=== PATIENT | female | born 1935 | race Hispanic/Latino ===

== ENCOUNTER 2017-07-21 18:50 | Inpatient (IN) | payer OTHER ==
[~2017-07-21] VITALS: Ht 144.8 cm; Wt 33.2 kg
[2017-07-21 19:46] LABS: INR 0.94 (0.85-1.15); PARTIAL THROMBOPLASTIN TIME 27.8 SEC (26.3-35.5); PROTHROMBIN TIME 9.9 SEC (9.6-11.6)
[2017-07-21 19:48] LABS: POTASSIUM 3.6 mmol/L (3.5-5.1)
[2017-07-21 19:52] LABS: ALBUMIN 3.2 g/dL (3.5-5.0); BILIRUBIN,TOTAL 0.3 mg/dL (0.2-1.0); TOTAL PROTEIN, SERUM 7.1 g/dL (6.0-8.3)
[2017-07-21] MEDS ORDERED: SODIUM CHLORIDE 0.9% 1000ML 1,000 ML IV ONE (20:32)
[2017-07-21 20:35] LABS: BASOPHILS % (AUTO) 0.4 % (0.0-5.0); EOSINOPHILS % (AUTO) 0.6 % (0.0-8.0); HEMATOCRIT 38.4 % (36-48); LYMPHOCYTES % (AUTO) 12.8 % (21.0-51.0); MEAN CORPUSCULAR HEMOGLOBIN 28.5 pg (27.0-33.0); MEAN CORPUSCULAR HGB CONC 33.3 g/dL (32.0-36.0); MEAN CORPUSCULAR VOLUME 85.7 fL (79-99); MONOCYTES % (AUTO) 5.9 % (3.0-13.0); NEUTROPHILS % (AUTO) 80.3 % (40.0-77.0); PLATELET COUNT (AUTO) 255 K/uL (130-400); RED BLOOD CELL COUNT(AUTO) 4.49 MIL/uL (4.00-5.50); RED CELL DISTRIBUTION WIDTH 15.6 % (11.0-15.5)
[2017-07-21 23:07] LABS: APPEARANCE,URINE Cloudy (CLEAR); BILIRUBIN,URINE Small (NEGATIVE); COLOR,URINE Dark Yellow (YELLOW); GLUCOSE, URINE (UA) Negative (NEGATIVE); KETONES,URINE Negative (NEGATIVE); LEUKOCYTE ESTERASE ,URINE Moderate (NEGATIVE); NITRATE,URINE Positive (NEGATIVE); OCCULT BLOOD,URINE Trace (NEGATIVE); PROTEIN,URINE POS 1+ (NEGATIVE)
[2017-07-21 23:13] LABS: BACTERIA,URINE Many /HPF (None Seen); RBC,URINE 0-1 /HPF (0-1); SQUAMOUS EPITHELIAL CELL,UR Rare /HPF (0-2)
[2017-07-21] MEDS ORDERED: CEFTRIAXONE SODIUM 1 GM ONE (23:56)
[2017-07-22] MEDS ORDERED: SODIUM CHLORIDE 0.9% 1000ML 1,000 ML IV ONE (02:07)
[2017-07-22] MEDS ORDERED: BISACODYL 10 MG SUPP.RECT RC ONE (02:07)
[2017-07-22 02:45] VITALS: BP 178/75
[2017-07-22 04:36] LABS: HEMATOCRIT 35.6 % (36-48); MEAN CORPUSCULAR HEMOGLOBIN 29.2 pg (27.0-33.0); MEAN CORPUSCULAR HGB CONC 33.7 g/dL (32.0-36.0); MEAN CORPUSCULAR VOLUME 86.6 fL (79-99); PLATELET COUNT (AUTO) 246 K/uL (130-400); RED BLOOD CELL COUNT(AUTO) 4.11 MIL/uL (4.00-5.50); RED CELL DISTRIBUTION WIDTH 15.7 % (11.0-15.5); WHITE BLOOD COUNT (AUTO) 6.8 K/uL (4.8-10.8)
[2017-07-22] MEDS: SODIUM CHLORIDE 0.9% 1000ML 1,000 ML IV SCH ×2 (04:45→20:09)
[2017-07-22 04:56] LABS: CREATININE 0.9 mg/dL (0.5-1.5); POTASSIUM 3.5 mmol/L (3.5-5.1)
[2017-07-22 07:00] VITALS: BP 155/83
[2017-07-22 11:00] VITALS: BP_SYST 114; BP_SYST 155; BP_DIAS 69; BP_DIAS 82; BP_DIAS 83
[2017-07-22] MEDS ORDERED: DONE10TA8 PO (12:28)
[2017-07-22] MEDS ORDERED: MEMA10TA11 PO (12:55)
[2017-07-22] MEDS ORDERED: HALO.5 PO (12:55)
[2017-07-22] MEDS ORDERED: SERT20OR PO (12:55)
[2017-07-22 16:00] VITALS: BP 126/75
[2017-07-22 20:00] VITALS: BP 150/79
[2017-07-22] MEDS: SERTRALINE HCL 20 MG PO SCH (21:00)
[2017-07-22] MEDS ORDERED: HALOPERIDOL 1 MG TABLET PO SCH (21:00)
[2017-07-22] MEDS: MEMANTINE HCL 5 MG TABLET PO SCH (21:23)
[2017-07-22 23:29] VITALS: BP 149/65
[2017-07-22] MEDS: CEFTRIAXONE SODIUM 1 GM IV SCH (23:56)
[2017-07-23 04:00] VITALS: BP 123/77
[2017-07-23 05:45] LABS: HEMATOCRIT 32.6 % (36-48); MEAN CORPUSCULAR HEMOGLOBIN 28.6 pg (27.0-33.0); MEAN CORPUSCULAR VOLUME 86.7 fL (79-99); PLATELET COUNT (AUTO) 197 K/uL (130-400); RED BLOOD CELL COUNT(AUTO) 3.77 MIL/uL (4.00-5.50); RED CELL DISTRIBUTION WIDTH 15.6 % (11.0-15.5); WHITE BLOOD COUNT (AUTO) 5.9 K/uL (4.8-10.8)
[2017-07-23 05:59] LABS: CREATININE 0.5 mg/dL (0.5-1.5)
[2017-07-23 06:05] LABS: POTASSIUM 2.5 mmol/L (3.5-5.1)
[2017-07-23 07:00] VITALS: BP 137/74
[2017-07-23] MEDS ORDERED: LIDOCAINE HCL-MPF 1% 2ML VIAL ONE (08:09)
[2017-07-23] MEDS ORDERED: POTASSIUM CHLORIDE 20MEQ/100ML 100 ML IV ONE (08:09)
[2017-07-23] MEDS: LIDOCAINE HCL-MPF 1% 2ML VIAL IVP PRN ×2 (08:13→11:10)
[2017-07-23] MEDS: POTASSIUM CHLORIDE 20MEQ/100ML 100 ML IV PRN ×4 (08:13→19:20)
[2017-07-23] MEDS: SERTRALINE HCL 20 MG PO SCH ×2 (09:00→20:35)
[2017-07-23] MEDS ORDERED: HALOPERIDOL 1 MG TABLET PO SCH (09:00)
[2017-07-23 11:00] VITALS: BP 138/77
[2017-07-23] MEDS: POTASSIUM CHLORIDE 10% ELIXIR 20 MEQ/15 ML UDCUP PO PRN (11:08)
[2017-07-23] MEDS: MEMANTINE HCL 5 MG TABLET PO SCH ×2 (11:09→20:30)
[2017-07-23] MEDS: DONEPEZIL HCL 5 MG TAB PO SCH (11:09)
[2017-07-23] MEDS: SODIUM CHLORIDE 0.9% 1000ML 1,000 ML IV SCH (11:33)
[2017-07-23] MEDS: LORAZEPAM 0.5 MG TABLET PO PRN (16:04)
[2017-07-23 19:15] VITALS: BP 166/77
[2017-07-23] MEDS: RISPERIDONE 1 MG TABLET PO SCH (20:29)
[2017-07-23] MEDS: CEFTRIAXONE SODIUM 1 GM IV SCH (23:14)
[2017-07-23 23:46] VITALS: BP 161/76
[2017-07-24] MEDS: SODIUM CHLORIDE 0.9% 1000ML 1,000 ML IV SCH ×3 (02:57→22:14)
[2017-07-24 04:10] VITALS: BP 161/77
[2017-07-24 07:00] VITALS: BP 186/84
[2017-07-24] MEDS: SERTRALINE HCL 20 MG PO SCH ×2 (09:00→21:00)
[2017-07-24 11:00] VITALS: BP 166/79
[2017-07-24] MEDS: MEMANTINE HCL 5 MG TABLET PO SCH ×2 (11:21→21:10)
[2017-07-24] MEDS: DONEPEZIL HCL 5 MG TAB PO SCH (11:21)
[2017-07-24] MEDS: LORAZEPAM 0.5 MG TABLET PO PRN (11:21)
[2017-07-24] MEDS: RISPERIDONE 1 MG TABLET PO SCH ×2 (11:22→21:10)
[2017-07-24] MEDS: POTASSIUM CHLORIDE 20 MEQ ERTAB PO PRN ×2 (11:26→15:19)
[2017-07-24 19:05] VITALS: BP 136/87
[2017-07-24] MEDS: POTASSIUM CHLORIDE 10% ELIXIR 20 MEQ/15 ML UDCUP PO PRN (21:10)
[2017-07-24 23:18] VITALS: BP 159/72
[2017-07-24] MEDS: CEFTRIAXONE SODIUM 1 GM IV SCH (23:26)
[2017-07-25] VITALS (7 sets, daily range): BP systolic 115–165; BP diastolic 56–94
[2017-07-25 06:39] LABS: CREATININE 0.5 mg/dL (0.5-1.5); POTASSIUM 3.8 mmol/L (3.5-5.1)
[2017-07-25] MEDS: SERTRALINE HCL 20 MG PO SCH ×2 (09:00→20:24)
[2017-07-25] MEDS: DONEPEZIL HCL 5 MG TAB PO SCH (09:38)
[2017-07-25] MEDS: MEMANTINE HCL 5 MG TABLET PO SCH ×2 (09:38→20:24)
[2017-07-25] MEDS: RISPERIDONE 1 MG TABLET PO SCH ×2 (09:38→20:24)
[2017-07-25] MEDS: SODIUM CHLORIDE 0.9% 1000ML 1,000 ML IV SCH (09:48)
[2017-07-25] MEDS: LORAZEPAM 0.5 MG TABLET PO PRN (18:20)
[2017-07-25] MEDS: TRAZODONE HCL 100 MG TABLET PO SCH (20:24)
[2017-07-25] MEDS: CEFTRIAXONE SODIUM 1 GM IV SCH (23:47)
[2017-07-26] MEDS: SODIUM CHLORIDE 0.9% 1000ML 1,000 ML IV SCH ×3 (00:23→17:05)
[2017-07-26 03:35] VITALS: BP 136/62
[2017-07-26 08:00] VITALS: BP 137/64
[2017-07-26] MEDS: SERTRALINE HCL 20 MG PO SCH ×2 (09:00→20:09)
[2017-07-26] MEDS: MEMANTINE HCL 5 MG TABLET PO SCH ×2 (10:16→20:09)
[2017-07-26] MEDS: DONEPEZIL HCL 5 MG TAB PO SCH (10:17)
[2017-07-26] MEDS: RISPERIDONE 1 MG TABLET PO SCH ×2 (10:17→20:09)
[2017-07-26 12:00] VITALS: BP 165/69
[2017-07-26 16:00] VITALS: BP 148/73
[2017-07-26 20:00] VITALS: BP 186/60
[2017-07-26] MEDS: TRAZODONE HCL 100 MG TABLET PO SCH (20:08)
[2017-07-26 23:00] VITALS: BP 149/74
[2017-07-26] MEDS: CEFTRIAXONE SODIUM 1 GM IV SCH (23:52)
[2017-07-27] MEDS: LORAZEPAM 0.5 MG TABLET PO PRN (01:01)
[2017-07-27 03:00] VITALS: BP 149/80
[2017-07-27] MEDS: SODIUM CHLORIDE 0.9% 1000ML 1,000 ML IV SCH (07:57)
[2017-07-27 08:00] VITALS: BP 133/62
[2017-07-27] MEDS: DONEPEZIL HCL 5 MG TAB PO SCH (08:31)
[2017-07-27] MEDS: MEMANTINE HCL 5 MG TABLET PO SCH ×2 (08:31→20:23)
[2017-07-27] MEDS: RISPERIDONE 1 MG TABLET PO SCH ×2 (08:31→20:23)
[2017-07-27] MEDS: SERTRALINE HCL 20 MG PO SCH ×2 (08:32→20:23)
[2017-07-27 12:00] VITALS: BP 126/61
[2017-07-27 16:00] VITALS: BP 147/73
[2017-07-27 20:00] VITALS: BP 122/63
[2017-07-27] MEDS: TRAZODONE HCL 100 MG TABLET PO SCH (20:23)
== END 2017-07-27 20:10 | DRG 689 ==
LOC: EDH 18:50 → 3DH 07-22 01:30 → OBSVTOIN 07-22 01:30
PROVIDERS: ADMIT Internal Medicine; ATTEND Internal Medicine
DX: N30.00 Acute cystitis without hematuria (principal); G93.40 Encephalopathy, unspecified; E86.0 Dehydration; F02.81 Dementia in other diseases classified elsewhere, unspecified severity, with behavioral disturbance; G30.9 Alzheimer's disease, unspecified; I35.0 Nonrheumatic aortic (valve) stenosis; G47.00 Insomnia, unspecified; Z83.3 Family history of diabetes mellitus; F32.9 Major depressive disorder, single episode, unspecified; I70.209 Unspecified atherosclerosis of native arteries of extremities, unspecified extremity; Z98.41 Cataract extraction status, right eye
CPT/HCPCS: 36415; 74018; 80048; 80053; 81001; 82948; 84132; 84484; 85025; 85027; 85610; 85730; 87088; 92610; 93005; 97039; A4218; A6453; J0696; J3480; J3490; J7030